=== PATIENT | female | born 2000 ===

== ENCOUNTER 2021-11-29 23:54 | Emergency (ER) | payer SELFPAY ==
[2021-11-30 00:42] VITALS: BP 114/67
[2021-11-30 01:36] LABS: Hematocrit 38.5 % (30.3-42.9); Hemoglobin 13.5 gm/dl (10.1-14.3); Mean Corpuscular HGB Conc 35 % (30-34); Mean Corpuscular Volume 85 fl (79-97); Platelet Count 330 K/mm3 (140-440); Red Blood Count 4.55 M/mm3 (3.65-5.03); Red Cell Distribution Width 13.1 % (13.2-15.2)
--- NOTE | 2021-11-30 02:11 | Emergency Department Report ---
ED Female HPI - General Chief complaint: Vaginal Bleeding Stated complaint: ABD PAIN/BLEEDING (ABOUT 12 WEEKS) Source: patient, family Mode of arrival: Ambulatory Limitations: No Limitations - History of Present Illness Initial comments: 21-year-old female presents to the ED with vaginal bleeding. Patient states that she is 4 months currently followed by [facility]. Patient is 2 par 0 miscarriage 1. Patient states that she started bleeding heavily today with abdominal cramping. She denies any nausea vomiting or diarrhea at present. Patient is alert and oriented x3. No acute distress noted no ill appearance noted.[place] Operator used per language line MD Complaint: vaginal bleeding Onset/Timin -: hour(s) Are you Now?: Yes Associated Symptoms: vaginal bleeding - Related Data : 2 Para: 0 A: 0 Previous Rx's Medication Instructions Recorded Last Taken Type Ciprofloxacin HCl 500 mg PO BID 7 Days #14 tab 11/30/21 Unknown Rx HYDROcodone/APAP 5-325 [[place] 1 each PO Q4HR PRN 3 Days #12 11/30/21 Unknown Rx 5/325] tablet metroNIDAZOLE [Flagyl] 500 mg PO Q12HR 7 Days #14 tab 11/30/21 Unknown Rx Allergies Allergy/AdvReac Type Severity Reaction Status Date / Time No Known Allergies Allergy Unverified 11/30/21 00:53 ED Review of Systems ROS: Stated complaint: ABD PAIN/BLEEDING (ABOUT 12 WEEKS) Other details as noted in HPI Constitutional: denies: chills, fever Eyes: denies: eye pain, eye discharge, vision change ENT: denies: ear pain, throat pain Respiratory: denies: cough, shortness of breath, wheezing Cardiovascular: denies: chest pain, palpitations Endocrine: no symptoms reported Gastrointestinal: denies: abdominal pain, nausea, diarrhea Genitourinary: denies: urgency, dysuria, discharge Musculoskeletal: denies: back pain, joint swelling, arthralgia Skin: denies: rash, lesions Neurological: denies: headache, weakness, paresthesias Psychiatric: denies: anxiety, depression Hematological/Lymphatic: denies: easy bleeding, easy bruising ED Past Medical Hx - Medications Home Medications: Home Medications Medication Instructions Recorded Confirmed Last Taken Type Ciprofloxacin HCl 500 mg PO BID 7 Days #14 tab 11/30/21 Unknown Rx HYDROcodone/APAP 5-325 [[place] 1 each PO Q4HR PRN 3 Days #12 11/30/21 Unknown Rx 5/325] tablet metroNIDAZOLE [Flagyl] 500 mg PO Q12HR 7 Days #14 tab 11/30/21 Unknown Rx ED Physical Exam - General Limitations: No Limitations General appearance: alert, in no apparent distress - Head Head exam: Present: atraumatic, normocephalic - Eye Eye exam: Present: normal appearance - ENT ENT exam: Present: mucous membranes moist - Neck Neck exam: Present: normal inspection - Respiratory Respiratory exam: Present: normal lung sounds bilaterally. Absent: respiratory distress - Cardiovascular Cardiovascular Exam: Present: regular rate, normal rhythm. Absent: systolic murmur, diastolic murmur, rubs, gallop - GI/Abdominal GI/Abdominal exam: Present: soft, normal bowel sounds - Speculum exam: Present: vaginal bleeding - Extremities Exam Extremities exam: Present: normal inspection - Back Exam Back exam: Present: normal inspection - Neurological Exam Neurological exam: Present: alert, oriented X3 - Psychiatric Psychiatric exam: Present: normal affect, normal mood - Skin Skin exam: Present: warm, dry, intact, normal color. Absent: rash ED Course Vital Signs 11/30/21 11/30/21 00:34 05:30 Temperature 98.0 F Pulse Rate 89 Respiratory 16 14 Rate Blood Pressure 114/67 [Right] O2 Sat by Pulse 98 Oximetry ED Medical Decision Making - Lab Data Result diagrams: 11/30/21 01:15 - Radiology Data [facility] [address] [place] [address] Ultrasound Report Signed Patient: REGGIE ROBERSON MR#: [id number] : 2000 Acct:[id number] Age/Sex: 21 / F ADM Date: 11/29/21 Loc: ED Attending Dr: Ordering Physician: DONI AGUILAR Date of Service: 11/30/21 Procedure(s): US OB <= 14 weeks fetus Accession Number(s): [id number] cc: DONI AGUILAR ULTRASOUND OBSTETRIC INDICATION / CLINICAL INFORMATION: VAGINAL BLEEDING. Serum beta hCG 546.6 Clinical Gestational Age (GA) in weeks, days: 15 weeks 5 days TECHNIQUE: Transabdominal. COMPARISON: None available. FINDINGS: The uterus measures 10.3 x 4.6 x 5.9 cm. The endometrial stripe is thickened measuring 21 mm. No intrauterine gestational sac demonstrated. Right ovary measures 3.2 x 1.1 x 1.7 cm and appears within normal limits. Left ovary measures 3.2 x 1.5 x 1.8 cm and appears within normal limits. No adnexal masses are adnexal free fluid. Urinary bladder not well visualized secondary to incomplete distention. IMPRESSION: 1. Thickened endometrium and positive exam without obvious gestational sac. Findings may represent missed AB, surveillance of beta hCG and/or short-term follow-up with pelvic ultrasound recommended. Signer Name: Elaina Santoro II, MD Signed: 11/30/2021 3:37 AM Workstation Name: [id number] Transcribed By: KAMRYN Dictated By: ELAINA SANTORO II, MD Electronically Authenticated By: ELAINA SANTORO II, MD Signed Date/Time: 11/30/21336 DD/ 2 TD/TT: - Medical Decision Making 21-year-old female presents to the ED with vaginal bleeding. Patient states that she is 4 months currently followed by [place] [facility]. Patient is 2 par 0 miscarriage 1. Patient states that she started bleeding heavily today with abdominal cramping. She denies any nausea vomiting or diarrhea at present. Patient is alert and oriented x3. No acute distress noted no ill appearance noted.[place] Operator used per language line Patient hCG quant 546. Ultrasound show no gestational sac . Patient is to follow-up with [facility] today she states she had a previous appointment already scheduled. instructed patient importance of following up within the next 48 hours to have hCG quant redrawn. All other lab were discussed with patient through marketing planner. Rechecked the patient is resting quietly quietly and comfortable and feeling better. I discussed the results of diagnostic study, my clinical impression and the plan for further treatment with the patient. Patient agrees with plan and discharge at this present time. All question addressed. I have given the patient instruction regarding a diagnosis ,expectation ,follow- up and return precaution. I explained to the patient that emergent condition may arise and to return to the ED for new worsen and any new persisting condition. I have explained the importance of following up with the primary care physician or referral physician listed below has instructed. The patient verbalized un derstanding of discharge instruction. Critical care attestation.: If time is entered above; I have spent that time in minutes in the direct care of this critically ill patient, excluding procedure time. ED Disposition Clinical Impression: Threatened in early Disposition: HOME / SELF CARE / HOMELESS Is pt being admited?: No Does the pt Need Aspirin: No Condition: Stable Instructions: Threatened Miscarriage, Vaginal Bleeding During , First Trimester Additional Instructions: Keep Appointment with [facility] SORTER on 11/30/2021 Return to the ED for any worsening symptoms Take medication as prescribed Prescriptions: Ciprofloxacin HCl 500 mg PO BID 7 Days #14 tab metroNIDAZOLE [Flagyl] 500 mg PO Q12HR 7 Days #14 tab HYDROcodone/APAP 5-325 [[place] 5/325] 1 each PO Q4HR PRN 3 Days #12 tablet PRN Reason: Pain Referrals: ALICIA GOOD MD [Staff Physician] - 3-5 Days Forms: Work/School Release Form(ED) Time of Disposition: 05:24
--- NOTE | 2021-11-30 03:41 | Ultrasound Report ---
ULTRASOUND OBSTETRIC INDICATION / CLINICAL INFORMATION: VAGINAL BLEEDING. Serum beta hCG 546.6 Clinical Gestational Age (GA) in weeks, days: 15 weeks 5 days TECHNIQUE: Transabdominal. COMPARISON: None available. FINDINGS: The uterus measures 10.3 x 4.6 x 5.9 cm. The endometrial stripe is thickened measuring 21 mm. No intr auterine gestational sac demonstrated. Right ovary measures 3.2 x 1.1 x 1.7 cm and appears within normal limits. Left ovary measures 3.2 x 1.5 x 1.8 cm and appears within normal limits. No adnexal masses are adnexal free fluid. Urinary bladder not well visualized secondary to incomplete distention. IMPRESSION: 1. Thickened endometrium and positive exam without obvious gestational sac. Findings may re present missed AB, surveillance of beta hCG and/or short-term follow-up with pelvic ultrasound recomm ended. Signer Name: Jose Ramon Varela II, MD Signed: 11/30/2021 3:37 AM Workstation Name: [id number]
[2021-11-30 04:20] LABS: Basophils % (Manual) 0 % (0.0-1.8); Monocytes % (Manual) 0 % (0.0-7.3); Total Cells Counted 100
[2021-11-30 04:21] LABS: Platelet Estimate Consistent w Auto; RBC Morphology Normal
[2021-11-30 04:35] LABS: Bilirubin,Urine Color Interference (Negative); Calcium Oxalate Crystals,Urine 3+; Color,Urine Red (Yellow); RBC,Urine > 182.0 /HPF (0.0-6.0)
[2021-11-30 04:36] LABS: Blood,Urine TNR (Negative); PH,Urine TNR (5.0-7.0); Protein,Urine TNR mg/dL (Negative); Urobilinogen,Urine TNR mg/dL (<2.0)
[2021-11-30] MEDS ORDERED: HYDROmorphone 1 MG/1 ML INJ IV ONE (05:18)
[2021-11-30] MEDS ORDERED: ONDANSETRON 4 MG/2 ML INJ IV ONE (05:18)
== END 2021-11-30 06:00 | disposition home or self-care (01) ==
LOC: ED 23:54
DX: O20.0 Threatened abortion (principal); Z3A.12 12 weeks gestation of pregnancy
CPT/HCPCS: 36415; 76801; 81001; 84702; 84703; 85007; 85025; 86900; 86901; 87086; 96374; 96375; 99284; J1170; J2405